=== PATIENT | male | born 1980 | race Caucasian/White ===

== ENCOUNTER 2017-05-29 11:15 | Day surgery (SDC) | payer OTHER ==
[2017-05-25 13:49] VITALS: BMI 32.5
[~2017-05-29 11:15] MED LIST: DEXAMETHASONE SOD PHOSPHATE 10 MG/ML 1 ML VIAL IV ONE; HYDROmorphone 1 MG/ML 1 ML SYRINGE IVP PRN; LACTATED RINGERS 1,000 ML IV SCH; ONDANSETRON 4 MG/2 ML VIAL IVP ONE; ceFAZolin 2 GM in SODIUM CHLORIDE 0.9% 100 ML IVPB ONE
[2017-05-29] MEDS ORDERED: LIDOCAINE 1% 20 ML VIAL (10MG/ML) FOR IV START INTRADERMA ONE (11:40)
[2017-05-29 11:44] VITALS: RESP 16; TEMP 96.9
[2017-05-29] MEDS ORDERED: MIDAZOLAM 2 MG/2 ML VIAL ONE (12:34)
[2017-05-29] MEDS ORDERED: fentaNYL (PF) 50 MCG/ML 2 ML AMP ONE (12:34)
[2017-05-29] MEDS ORDERED: PROPOFOL 10 MG/ML 20 ML VIAL IV ONE (12:34)
[2017-05-29] MEDS ORDERED: BUPIVACAINE (PF) 0.5% 30 ML VIAL SQ ONE (12:49)
[2017-05-29] MEDS ORDERED: LIDOCAINE 2% (PF) 20 MG/ML 10ML SQ ONE (12:49)
[2017-05-29 13:17] VITALS: BP 135/90; PULSE 65
--- NOTE | 2017-05-29 13:40 | OP ---
OPERATIVE REPORT DATE OF SERVICE: 05/29/2017. SURGEON: Haile Ivory DO PREOPERATIVE DIAGNOSIS: Right index finger laceration, rule out radial digital nerve laceration. POSTOPERATIVE DIAGNOSIS: 1. Right index finger laceration. 2. Scarring radial digital nerve right index finger. PROCEDURE: 1. Exploration of laceration. 2. Neurolysis radial digital nerve right index finger. GROSS PATHOLOGY: This is a 37-year-old man who sustained a laceration to the volar aspect of his right index finger over the proximal skin crease oriented to the radial side. He had complete anesthesia in the distribution of the radial digital nerve with two-point discrimination well beyond a centimeter. Therefore it was unknown whether this was neurapraxia or nerve laceration. Exploration demonstrated the nerve completely intact. Therefore the procedure consisted of neurolysis of scarring around the nerve for visualization purposes and repair of skin wound. PROCEDURE: This 37-year-old man was taken to the operative suite, given IV sedation and a modified digital block of his right index finger was performed with combinations Xylocaine and Marcaine both without epinephrine. His hand was then prepped and draped in usual manner. It was elevated, exsanguinated cuff was inflated to 250 mmHg. His transverse incision was opened and extended both proximally and distally as planned. Skin flaps were retracted and dissection was undertaken with 4.5 loupe magnification. Blunt dissection was used exposing the nerve proximally and distally. It was then traced within the scar tissue. It was successfully neurolysed and noted to be completely intact. No further repair was necessary regarding nerve or tendon. The wound was thoroughly irrigated. Tourniquet was released. Hemostasis with pressure. After the wound irrigation, the skin was closed with interrupted 5-0 nylon suture. Soft bulky dressing was applied and the patient was taken to recovery room in satisfactory condition. MMODL / IJN: [id number] /
== END 2017-05-29 13:45 | disposition home or self-care (01) ==
LOC: OR 11:15
PROVIDERS: ATTEND Orthopaedic Surgery Hand Surgery
DX: S64.490A Injury of digital nerve of right index finger, initial encounter (principal); S61.210A Laceration without foreign body of right index finger without damage to nail, initial encounter; W25.XXXA Contact with sharp glass, initial encounter; Z87.891 Personal history of nicotine dependence
CPT/HCPCS: 64702; J2250; J1100; J2001; J0690; J2405; J3010; J2704